=== PATIENT | female | born 1965 | race Caucasian/White ===

== ENCOUNTER 2018-10-12 18:31 | Emergency (ER) | payer OTHER, SELFPAY ==
[2018-10-12 18:50] VITALS: BP 159/103; PULSE 110; RESP 18; TEMP 36.8; O2SAT 100
--- NOTE | 2018-10-12 18:51 | DI.RAD.S_ITS ---
PROCEDURE: XR FOOT LT MIN 3V INDICATIONS: pain to navic after dropping full water bottle on top of foot TECHNIQUE: 3 views of the foot were acquired. COMPARISON: None. FINDINGS: Bones: Small area of ossification is noted along the posterior aspect of the navicular bone. No suspicious bony lesions. Soft tissues: No tibiotalar joint effusion. Achilles tendon appears normal. IMPRESSION: Small ossification along the posterior navicular bone seen on lateral view. This could represent avulsion injury given history of trauma. Dictated by: La Gold M.D. on 10/12/2018 at 20:02 Approved by: La Gold M.D. on 10/12/2018 at 20:04
[2018-10-12] MEDS: HYDROCODONE/ACET 5/325 TABLET 1 TAB PO (21:05)
--- NOTE | 2018-10-12 21:12 | ED.LOWEXIN ---
HPI - Extremity Injury (Lower) <COMPA Gould - Last Filed: 10/12/18 21:22> General Chief Complaint: Extremity Injury, Lower Stated Complaint: LEFT FOOT INJURED Time Seen by Provider: 10/12/18 18:49 Source: patient Mode of arrival: ambulatory Limitations: no limitations History of Present Illness HPI Narrative: The patient is a 52-year-old female nonsmoker with history of depression who presents with a family member for chief complaint foot pain. She states she dropped a metal ground alert on her left foot several days ago. She was followed up with her primary care provider, and had an x-ray ordered. However she was not able to get it due to insurance authorization taking 5 days. She states her pain is feeling worse. She has been taking Mobic as prescribed. She denies any numbness or tingling. She states she is unable to bear weight due to the pain. She states the pain is over the top of her foot by her navicular. She has not hurt this foot or ankle before. She is upset as she is supposed to around wrap nor tomorrow. Related Data Home Medications Medication Instructions Recorded Confirmed Acyclovir (Zovirax) 400 mg PO PRN #0 04/15/07 Bupropion Hydrochloride 150 mg PO BID #0 04/15/07 (Wellbutrin Sr) Citalopram Hydrobromide 20 mg PO #0 04/15/07 (Citalopram HBr) Zolpidem Tartrate (Ambien) 10 mg PO PRN #0 04/15/07 [MOBIC] 15 mg PO #0 04/15/07 Previous Rx's Medication Instructions Recorded hydrocodone-acetaminophen [Wilmot] 1 tab PO Q4-6H PRN #10 tab 10/12/18 Allergies Allergy/AdvReac Type Severity Reaction Status Date / Time No Known Drug Allergies Allergy Verified 10/12/18 20:57 Review of Systems <COMPA Gould - Last Filed: 10/12/18 21:22> Review of Systems GENERAL: Denies chills, fatigue, malaise, fever, sweats. HEENT: Denies sinus pain, ear pain, sore throat, difficulty swallowing, dizziness. RESPIRATORY: Denies dyspnea, cough, wheezing, hemoptysis, sputum. CARDIOVASCULAR: Denies chest pain, palpitations, orthopnea, edema, GASTROINTESTINAL: Denies nausea, vomiting, abdominal pain, diarrhea, constipation, melena. : Denies dysuria, frequency, incontinence, hematuria, urinary retention. MUSCULOSKELETAL: See HPI SKIN: See HPI NEUROLOGIC: Denies weakness, headache, numbness, change in speech, confusion, seizures, incoordination. PSYCHIATRIC: No concerning psychosocial issues. 12 point review of systems is negative except for those stated above PFSH <COMPA Gould - Last Filed: 10/12/18 21:22> Medical History (Updated 10/12/18 @ 21:20 by COMPA Gould) Depression (Acute) Social History Smoking Status: Never smoker Social History Smoking Status: Never smoker Exam <COMPA Gould - Last Filed: 10/12/18 21:22> Narrative Exam Narrative: GENERAL: Patient in no acute distress. HEAD: Atraumatic. Normocephalic. No temporal or scalp tenderness. EYES: Pupils equal round and reactive. Extraocular motions intact. No scleral icterus. No injection or drainage. ENT: Nose without bleeding, purulent drainage or septal hematoma. Throat without erythema, tonsillar hypertrophy or exudate. Uvula midline. Airway patent. NECK: Trachea midline. No JVD or lymphadenopathy. Supple, nontender, no meningeal signs. CARDIOVASCULAR: Regular rate and rhythm RESPIRATORY: No cough. No increased respiratory effort. No accessory muscle use. EXTREMITIES: Pain to palpation left foot, anterior aspect by navicular. Positive pedal pulses. Moving toes. BACK: Nontender without deformity or crepitance. No flank tenderness. NEURO: AOx3. SKIN: Ecchymosis noted over navicular of left foot Initial Vital Signs Initial Vital Signs: Vital Signs Temperature 98.2 F 10/12/18 18:50 Pulse Rate 110 H 10/12/18 18:50 Respiratory Rate 18 10/12/18 18:50 Blood Pressure 159/103 H 10/12/18 18:50 Pulse Oximetry 100 10/12/18 18:50 <Georgi Valente DO - Last Filed: 10/13/18 03:52> Initial Vital Signs Initial Vital Signs: Vital Signs Temperature 98.2 F 10/12/18 18:50 Pulse Rate 110 H 10/12/18 18:50 Respiratory Rate 18 10/12/18 18:50 Blood Pressure 159/103 H 10/12/18 18:50 Pulse Oximetry 100 10/12/18 18:50 Procedures <COMPA Gould - Last Filed: 10/12/18 21:22> Orthopedic Splinting/Casting Injury #1: Side: left Lower Extremity Injury Location: foot Lower Extremity Immobilizer: posterior splint Other Orthopedic Equipment: crutches Post splinting neuro exam: intact Post splinting vascular exam: intact Placed by: Nursing Course <COMPA Gould - Last Filed: 10/12/18 21:22> Orders Ordered: Discontinued Medications Hydrocodone Bitart/Acetaminophen (Wilmot 5/325) 1 tab PO NOW ONE Stop: 10/12/18 20:55 Last Admin: 10/12/18 21:05 Dose: 1 tab Vital Signs - 8 hr 10/12/18 21:30 Pulse Rate 83 Respiratory Rate 18 Blood Pressure 144/94 H Pulse Oximetry 99 <Georgi Valente DO - Last Filed: 10/13/18 03:52> Orders Ordered: Discontinued Medications Hydrocodone Bitart/Acetaminophen (Wilmot 5/325) 1 tab PO NOW ONE Stop: 10/12/18 20:55 Last Admin: 10/12/18 21:05 Dose: 1 tab Vital Signs - 8 hr 10/12/18 21:30 Pulse Rate 83 Respiratory Rate 18 Blood Pressure 144/94 H Pulse Oximetry 99 MDM - Extremity Injury (Lower) <COMPA Gould - Last Filed: 10/12/18 21:22> Imaging Data Foot x-ray: Radiologist's impression: Eleni Roa 52 F [address] [address] XRay Report Signed Patient: Vamsi RoaAbdulaziz#: [id number] : 1965Acct:[id number] Age/Sex: 52 / FDate of Service: 10/12/18 Loc: ED Accession Number: [id number] Procedure: XR foot LT min 3V Ordering Provider: Yumiko Amaya PROCEDURE: XR FOOT LT MIN 3V INDICATIONS: pain to navic after dropping full water bottle on top of foot TECHNIQUE: 3 views of the foot were acquired. COMPARISON: None. FINDINGS: Bones: Small area of ossification is noted along the posterior aspect of the navicular bone. No suspicious bony lesions. Soft tissues: No tibiotalar joint effusion. Achilles tendon appears normal. IMPRESSION: Small ossification along the posterior navicular bone seen on lateral view. This could represent avulsion injury given history of trauma. Dictated by: La Gold M.D. on 10/12/2018 at 20:02 Approved by: La Gold M.D. on 10/12/2018 at 20:04 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 X-ray illustrate a possible avulsion injury to the posterior navicular, also possibly a small ossification. Given her recent trauma and difficulty weight-bearing, we elected to treat her as though it is a fracture. She was placed in a posterior splint and given crutches. I discussed at length nonweightbearing as well as follow-up with PCP and/or [facility]. Patient states she will call [facility]. I did give the patient small prescription of hydrocodone for pain. Discussed at length following up. Discussed coming back to the ER for any acute concerns such as decreased circulation to her toes. Discharge Plan Departure Patient Disposition: Home Clinical Impression: Avulsion fracture of navicular bone of foot Qualifiers: Encounter type: initial encounter Fracture type: closed Laterality: left Qualified Code(s): S92.252A - Displaced fracture of navicular [scaphoid] of left foot, initial encounter for closed fracture Discharge Date/Time: 10/12/18 21:30 Interventions: ED Discharge Assessment Last Done: 10/12/18 21:30 Instructions: Navicular Fracture, How To Perform RICE (Rest, Ice, Compress, Elevate) Activity Restrictions/Additional Instructions: Your x-ray shows a possible avulsion fracture to your navicular on her foot. Given her recent trauma, we elected to treat like this is a fracture. We have please do in a splint and made you nonweightbearing Please follow-up with [facility]. Please use rest ice compression elevation as well as [id number] pain medications as needed And able. I have given you a prescription of Wilmot for severe pain. Be aware this can be constipating and sedating. Please come back to the ER for any acute concerns such as lack of circulation to your foot. Prescriptions: New hydrocodone-acetaminophen [Wilmot] 5-325 mg tablet 1 tab PO Q4-6H PRN (Reason: pain) Qty: 10 RF: 0 No Action Acyclovir (Zovirax) 400 mg PO PRN Qty: 0 RF: 0 Bupropion Hydrochloride (Wellbutrin Sr) 150 mg PO BID Qty: 0 RF: 0 Citalopram Hydrobromide (Citalopram HBr) 20 mg PO Qty: 0 RF: 0 Zolpidem Tartrate (Ambien) 10 mg PO PRN Qty: 0 RF: 0 [MOBIC] 15 mg PO Qty: 0 RF: 0 Referrals: [facility] [Provider Group] <Georgi Valente DO - Last Filed: 10/13/18 03:52> Cosign ED Attending Hankature Attestation: I was immediately available in the department for consultation. Documentation has been reviewed. I agree with assessment and plan.
--- NOTE | 2018-10-12 21:20 | ED_ITS ---
HPI - Extremity Injury (Lower) <COMPA Gould - Last Filed: 10/12/18 21:22> General Chief Complaint: Extremity Injury, Lower Stated Complaint: LEFT FOOT INJURED Time Seen by Provider: 10/12/18 18:49 Source: patient Mode of arrival: ambulatory Limitations: no limitations History of Present Illness HPI Narrative: The patient is a 52-year-old female nonsmoker with history of depression who presents with a family member for chief complaint foot pain. She states she dropped a metal ground alert on her left foot several days ago. She was followed up with her primary care provider, and had an x-ray ordered. However she was not able to get it due to insurance authorization taking 5 days. She states her pain is feeling worse. She has been taking Mobic as prescribed. She denies any numbness or tingling. She states she is unable to bear weight due to the pain. She states the pain is over the top of her foot by her navicular. She has not hurt this foot or ankle before. She is upset as she is supposed to around wrap nor tomorrow. Related Data Home Medications Medication Instructions Recorded Confirmed Acyclovir (Zovirax) 400 mg PO PRN #0 04/15/07 Bupropion Hydrochloride 150 mg PO BID #0 04/15/07 (Wellbutrin Sr) Citalopram Hydrobromide 20 mg PO #0 04/15/07 (Citalopram HBr) Zolpidem Tartrate (Ambien) 10 mg PO PRN #0 04/15/07 [MOBIC] 15 mg PO #0 04/15/07 Previous Rx's Medication Instructions Recorded hydrocodone-acetaminophen [Linn] 1 tab PO Q4-6H PRN #10 tab 10/12/18 Allergies Allergy/AdvReac Type Severity Reaction Status Date / Time No Known Drug Allergies Allergy Verified 10/12/18 20:57 Review of Systems <COMPA Gould - Last Filed: 10/12/18 21:22> Review of Systems GENERAL: Denies chills, fatigue, malaise, fever, sweats. HEENT: Denies sinus pain, ear pain, sore throat, difficulty swallowing, dizziness. RESPIRATORY: Denies dyspnea, cough, wheezing, hemoptysis, sputum. CARDIOVASCULAR: Denies chest pain, palpitations, orthopnea, edema, GASTROINTESTINAL: Denies nausea, vomiting, abdominal pain, diarrhea, constipation, melena. : Denies dysuria, frequency, incontinence, hematuria, urinary retention. MUSCULOSKELETAL: See HPI SKIN: See HPI NEUROLOGIC: Denies weakness, headache, numbness, change in speech, confusion, seizures, incoordination. PSYCHIATRIC: No concerning psychosocial issues. 12 point review of systems is negative except for those stated above PFSH <COMPA Gould - Last Filed: 10/12/18 21:22> Medical History (Updated 10/12/18 @ 21:20 by COMPA Gould) Depression (Acute) Social History Smoking Status: Never smoker Social History Smoking Status: Never smoker Exam <COMPA Gould - Last Filed: 10/12/18 21:22> Narrative Exam Narrative: GENERAL: Patient in no acute distress. HEAD: Atraumatic. Normocephalic. No temporal or scalp tenderness. EYES: Pupils equal round and reactive. Extraocular motions intact. No scleral icterus. No injection or drainage. ENT: Nose without bleeding, purulent drainage or septal hematoma. Throat without erythema, tonsillar hypertrophy or exudate. Uvula midline. Airway patent. NECK: Trachea midline. No JVD or lymphadenopathy. Supple, nontender, no meningeal signs. CARDIOVASCULAR: Regular rate and rhythm RESPIRATORY: No cough. No increased respiratory effort. No accessory muscle use. EXTREMITIES: Pain to palpation left foot, anterior aspect by navicular. Positive pedal pulses. Moving toes. BACK: Nontender without deformity or crepitance. No flank tenderness. NEURO: AOx3. SKIN: Ecchymosis noted over navicular of left foot Initial Vital Signs Initial Vital Signs: Vital Signs Temperature 98.2 F 10/12/18 18:50 Pulse Rate 110 H 10/12/18 18:50 Respiratory Rate 18 10/12/18 18:50 Blood Pressure 159/103 H 10/12/18 18:50 Pulse Oximetry 100 10/12/18 18:50 <Georgi Valente DO - Last Filed: 10/13/18 03:52> Initial Vital Signs Initial Vital Signs: Vital Signs Temperature 98.2 F 10/12/18 18:50 Pulse Rate 110 H 10/12/18 18:50 Respiratory Rate 18 10/12/18 18:50 Blood Pressure 159/103 H 10/12/18 18:50 Pulse Oximetry 100 10/12/18 18:50 Procedures <COMPA Gould - Last Filed: 10/12/18 21:22> Orthopedic Splinting/Casting Injury #1: Side: left Lower Extremity Injury Location: foot Lower Extremity Immobilizer: posterior splint Other Orthopedic Equipment: crutches Post splinting neuro exam: intact Post splinting vascular exam: intact Placed by: Nursing Course <COMPA Gould - Last Filed: 10/12/18 21:22> Orders Ordered: Discontinued Medications Hydrocodone Bitart/Acetaminophen (Linn 5/325) 1 tab PO NOW ONE Stop: 10/12/18 20:55 Last Admin: 10/12/18 21:05 Dose: 1 tab Vital Signs - 8 hr 10/12/18 21:30 Pulse Rate 83 Respiratory Rate 18 Blood Pressure 144/94 H Pulse Oximetry 99 <Georgi Valente DO - Last Filed: 10/13/18 03:52> Orders Ordered: Discontinued Medications Hydrocodone Bitart/Acetaminophen (Linn 5/325) 1 tab PO NOW ONE Stop: 10/12/18 20:55 Last Admin: 10/12/18 21:05 Dose: 1 tab Vital Signs - 8 hr 10/12/18 21:30 Pulse Rate 83 Respiratory Rate 18 Blood Pressure 144/94 H Pulse Oximetry 99 MDM - Extremity Injury (Lower) <COMPA Gould - Last Filed: 10/12/18 21:22> Imaging Data Foot x-ray: Radiologist's impression: Eleni Roa 52 F [address] [address] XRay Report Signed Patient: Vamsi RoaAbdulaziz#: [id number] : 1965Acct:[id number] Age/Sex: 52 / FDate of Service: 10/12/18 Loc: ED Accession Number: [id number] Procedure: XR foot LT min 3V Ordering Provider: Yumiko Amaya PROCEDURE: XR FOOT LT MIN 3V INDICATIONS: pain to navic after dropping full water bottle on top of foot TECHNIQUE: 3 views of the foot were acquired. COMPARISON: None. FINDINGS: Bones: Small area of ossification is noted along the posterior aspect of the navicular bone. No suspicious bony lesions. Soft tissues: No tibiotalar joint effusion. Achilles tendon appears normal. IMPRESSION: Small ossification along the posterior navicular bone seen on lateral view. This could represent avulsion injury given history of trauma. Dictated by: La Gold M.D. on 10/12/2018 at 20:02 Approved by: La Gold M.D. 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 X-ray illustrate a possible avulsion injury to the posterior navicular, also possibly a small ossification. Given her recent trauma and difficulty weight-bearing, we elected to treat her as though it is a fracture. She was placed in a posterior splint and given crutches. I discussed at length nonweightbearing as well as follow-up with PCP and/or [facility]. Patient states she will call [facility]. I did give the patient small prescription of hydrocodone for pain. Discussed at length following up. Discussed coming back to the ER for any acute concerns such as decreased circulation to her toes. Discharge Plan Departure Patient Disposition: Home Clinical Impression: Avulsion fracture of navicular bone of foot Qualifiers: Encounter type: initial encounter Fracture type: closed Laterality: left Qualified Code(s): S92.252A - Displaced fracture of navicular [scaphoid] of left foot, initial encounter for closed fracture Discharge Date/Time: 10/12/18 21:30 Interventions: ED Discharge Assessment Last Done: 10/12/18 21:30 Instructions: Navicular Fracture, How To Perform RICE (Rest, Ice, Compress, Elevate) Activity Restrictions/Additional Instructions: Your x-ray shows a possible avulsion fracture to your navicular on her foot. Given her recent trauma, we elected to treat like this is a fracture. We have please do in a splint and made you nonweightbearing Please follow-up with [facility]. Please use rest ice compression elevation as well as [id number] pain medications as needed And able. I have given you a prescription of Linn for severe pain. Be aware this can be constipating and sedating. Please come back to the ER for any acute concerns such as lack of circulation to your foot. Prescriptions: New hydrocodone-acetaminophen [Linn] 5-325 mg tablet 1 tab PO Q4-6H PRN (Reason: pain) Qty: 10 RF: 0 No Action Acyclovir (Zovirax) 400 mg PO PRN Qty: 0 RF: 0 Bupropion Hydrochloride (Wellbutrin Sr) 150 mg PO BID Qty: 0 RF: 0 Citalopram Hydrobromide (Citalopram HBr) 20 mg PO Qty: 0 RF: 0 Zolpidem Tartrate (Ambien) 10 mg PO PRN Qty: 0 RF: 0 [MOBIC] 15 mg PO Qty: 0 RF: 0 Referrals: [facility] [Provider Group] <Georgi Valente DO - Last Filed: 10/13/18 03:52> Cosign ED Attending Hankature Attestation: I was immediately available in the department for consultation. Documentation has been reviewed. I agree with assessment and plan.
[2018-10-12 21:30] VITALS: BP 144/94; PULSE 83; RESP 18; O2SAT 99
== END 2018-10-12 21:30 | disposition home or self-care (01) ==
PROVIDERS: Emergency Provider Nurse Practitioner Family
DX: S92.252A Displaced fracture of navicular [scaphoid] of left foot, initial encounter for closed fracture (principal); W20.8XXA Other cause of strike by thrown, projected or falling object, initial encounter
CPT/HCPCS: 29515; 73630; 99282; 99283